=== PATIENT | male | born 1965 | race Caucasian/White ===

== ENCOUNTER 2024-05-09 10:26 | Day surgery (SDC) | payer OTHER ==
[2024-05-09] MEDS: Lactated Ringers 1,000 ML IV SCH (10:53)
[2024-05-09] MEDS ORDERED: Propofol 200 MG/20 ML SDV ONE (11:39)
[2024-05-09] MEDS ORDERED: Lidocaine 2% 5 ML SDV ONE (11:39)
[2024-05-09] MEDS ORDERED: Lactated Ringers 1,000 ML IV SCH (13:15)
== END 2024-05-09 13:20 | disposition home or self-care (01) ==
LOC: MW.SDS 10:26
PROVIDERS: ATTEND Surgery
DX: K21.9 Gastro-esophageal reflux disease without esophagitis (principal); K44.9 Diaphragmatic hernia without obstruction or gangrene; J44.9 Chronic obstructive pulmonary disease, unspecified; R05.3 Chronic cough; Z79.899 Other long term (current) drug therapy; Z88.8 Allergy status to other drugs, medicaments and biological substances; Z88.5 Allergy status to narcotic agent
CPT/HCPCS: 43239; J2003; J2704; J7120; 00731; 88305